=== PATIENT | female | born 1945 ===

== ENCOUNTER 2022-01-07 07:53 | Emergency (ER) | payer MEDICARE, OTHER ==
[~2022-01-07] VITALS: Ht 165.1 cm; Wt 61.4 kg
[2022-01-07] MEDS ORDERED: HYDR200T38 PO (08:16)
[2022-01-07] MEDS ORDERED: CARV3 PO (08:16)
[2022-01-07] MEDS ORDERED: ATOR40TA28 PO (08:16)
[2022-01-07] MEDS ORDERED: EZET10TA57 PO (08:16)
[2022-01-07] MEDS ORDERED: CARV20CP PO (08:16)
[2022-01-07 09:00] VITALS: BP 133/62
[2022-01-07] MEDS ORDERED: AMOX500C2 PO ×2 (09:11→10:54)
== END 2022-01-07 09:21 | disposition home or self-care (01) ==
LOC: EMS 07:55
DX: H66.93 Otitis media, unspecified, bilateral (principal); I10 Essential (primary) hypertension; E78.5 Hyperlipidemia, unspecified; E78.00 Pure hypercholesterolemia, unspecified; K21.9 Gastro-esophageal reflux disease without esophagitis; Z87.39 Personal history of other diseases of the musculoskeletal system and connective tissue; Z90.49 Acquired absence of other specified parts of digestive tract; Z90.710 Acquired absence of both cervix and uterus
CPT/HCPCS: 99283